=== PATIENT | male | born 1985 | race African-American/Black ===

== ENCOUNTER 2018-06-04 19:24 | Emergency (ER) | payer OTHER ==
[~2018-06-04] VITALS: Ht 185.4 cm; Wt 73.9 kg
[2018-06-04 19:29] VITALS: BP 148/102
[2018-06-04] MEDS ORDERED: DIPH,PERTUSS(ACELL),TET VAC/PF 0.5 ML IM-VACC ONE ×2 (19:48→20:00)
[2018-06-04] MEDS ORDERED: PLEASE ENTER ALLERGIES MC SCH (20:00)
== END 2018-06-04 20:04 | disposition home or self-care (01) ==
LOC: ED 19:53
DX: S30.810A Abrasion of lower back and pelvis, initial encounter (principal); L02.31 Cutaneous abscess of buttock; W19.XXXA Unspecified fall, initial encounter; Y93.89 Activity, other specified; Y92.69 Other specified industrial and construction area as the place of occurrence of the external cause; Y99.8 Other external cause status
CPT/HCPCS: 90471; 90715; 99283

== ENCOUNTER 2019-03-03 18:13 | Emergency (ER) | payer OTHER ==
[~2019-03-03] VITALS: Ht 185.4 cm; Wt 85.5 kg
[2019-03-03 18:23] VITALS: BP 146/105
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
[2019-03-03] MEDS ORDERED: KETOROLAC 30 MG/1 ML ONE (19:27)
[2019-03-03] MEDS ORDERED: DEXAMETHASONE 4 MG TABLET ONE (19:27)
[2019-03-03] MEDS ORDERED: KETOROLAC 30 MG/1 ML IM ONE (19:30)
[2019-03-03] MEDS ORDERED: DEXAMETHASONE 4 MG TABLET PO ONE (19:30)
--- NOTE | 2019-03-03 19:32 | NUR ---
MEDICATED PER EMAR FOR THROAT PAIN AT 01/25 TO XRAY AT 193
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
== END 2019-03-03 20:47 | disposition home or self-care (01) ==
LOC: ED 20:27
DX: R07.89 Other chest pain (principal); B34.9 Viral infection, unspecified; J02.8 Acute pharyngitis due to other specified organisms
CPT/HCPCS: 71046; 87081; 87880; 96372; 99284; J1885

== ENCOUNTER 2019-04-26 15:30 | Emergency (ER) | payer OTHER ==
[~2019-04-26] VITALS: Ht 185.4 cm; Wt 85.9 kg
[2019-04-26 15:33] VITALS: BP 147/97
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
[2019-04-26] MEDS ORDERED: METHOCARBAMOL 750 MG TABLET ONE (15:51)
[2019-04-26] MEDS ORDERED: KETOROLAC 30 MG/1 ML ONE (15:51)
--- NOTE | 2019-04-26 15:55 | NUR ---
PT MEDICATED PER EMAR. PT TOLERATED WELL.
[2019-04-26] MEDS ORDERED: KETOROLAC 30 MG/1 ML IM ONE (16:00)
[2019-04-26] MEDS ORDERED: METHOCARBAMOL 750 MG TABLET PO ONE (16:00)
[2019-04-26 17:17] LABS: MICROSCOPIC AUTO
[2019-04-26 17:21] LABS: CULTURE INDICATED? YES
--- NOTE | 2019-04-26 17:36 | NUR ---
Patient/Caregiver given discharge instructions and they have confirmed that they understand the instructions. Patient ambulatory with steady gait.
== END 2019-04-26 17:38 | disposition home or self-care (01) ==
LOC: ED 16:57
DX: R10.9 Unspecified abdominal pain (principal); S01.112D Laceration without foreign body of left eyelid and periocular area, subsequent encounter; V49.59XA Passenger injured in collision with other motor vehicles in traffic accident, initial encounter; Y93.89 Activity, other specified; Y92.410 Unspecified street and highway as the place of occurrence of the external cause; Y99.8 Other external cause status
CPT/HCPCS: 81001; 87086; 96372; 99283; J1885